=== PATIENT | female | born 1980 | race African-American/Black ===

== ENCOUNTER 2021-04-07 16:36 | Emergency (ER) | payer OTHER ==
[2021-04-07 19:10] LABS: BASOPHIL 0.4 % (0-2); CREATININE 0.74 mg/dL (0.51-0.95); EOSINOPHIL 0.1 % (0-5); HCT 46.2 % (37.0-47.0); HGB 15.4 g/dl (12.5-16.0); LYMPHOCYTE 10.6 % (15-48); MCH 30.6 pg (25.0-31.0); MCHC 33.3 g/dL (32.0-36.0); MCV 91.7 fL (78.0-100.0); MONOCYTE 3.6 % (0-12); MPV 8.8 fL (6.0-9.5); NEUTROPHIL 84.1 % (41-80); NRBC 0; PLT 396 K/uL (150-400); POTASSIUM 4.5 mmol/L (3.5-5.1); RBC 5.04 M/uL (4.20-5.40); RDW 13.1 % (11.5-14.0); WBC 15.3 K/uL (4.0-10.5)
[2021-04-07] MEDS ORDERED: VENTOLIN HFA IN18 GM INH ×2 (20:35→20:39)
[2021-04-07] MEDS ORDERED: MEDROL 4MG DOSEP4 MG PO ×2 (20:35→20:39)
[2021-04-07] MEDS ORDERED: ZPAK PO ×2 (20:35→20:39)
== END 2021-04-07 21:02 | disposition home or self-care (01) ==
LOC: FER 16:36
PROVIDERS: Nurse Practitioner Family
DX: U07.1 COVID-19 (principal); Z91.040 Latex allergy status
CPT/HCPCS: 36415; 71045; 80048; 85025; J7030